=== PATIENT | male | born 1965 | race Caucasian/White ===

== ENCOUNTER 2021-06-04 06:50 | Day surgery (SDC) | payer OTHER, MEDICAID, SELFPAY ==
[~2021-06-04] VITALS: Ht 157.5 cm; Wt 108.9 kg
[2021-06-04] MEDS ORDERED: MIDAZOLAM HCL 5 MG/5 ML VIAL ONE (08:53)
[2021-06-04] MEDS ORDERED: fentaNYL CITRATE/PF 100 MCG/2 ML AMP ONE (08:53)
[2021-06-04] MEDS ORDERED: MEPERIDINE 100 MG INJ. 100 MG/ML VIAL ONE (08:53)
[2021-06-04 12:01] VITALS: BP_SYST 149
== END 2021-06-04 12:01 | disposition home or self-care (01) ==
LOC: SDS 06:50 → SMU 06:51 → SDS 12:01
PROVIDERS: ATTEND Internal Medicine Gastroenterology
DX: K21.9 Gastro-esophageal reflux disease without esophagitis (principal); E66.01 Morbid (severe) obesity due to excess calories; K29.80 Duodenitis without bleeding; K29.50 Unspecified chronic gastritis without bleeding; K44.9 Diaphragmatic hernia without obstruction or gangrene; Z98.84 Bariatric surgery status; Z79.899 Other long term (current) drug therapy; Z20.822 Contact with and (suspected) exposure to COVID-19
CPT/HCPCS: 36415; 43239; 82962; 87426; 88305; 88312; 88313; 99152; G0378; J2250; J3010; U0003; J2175